=== PATIENT | female | born 1965 | race Caucasian/White ===

== ENCOUNTER → 2018-01-23 | Outpatient (CLI) | payer OTHER | END | disposition home or self-care (01) | LOC: TOM 07:13 | DX: R10.84 Generalized abdominal pain (principal); R63.8 Other symptoms and signs concerning food and fluid intake ==

== ENCOUNTER 2018-11-17 05:27 | Inpatient (IN) | payer OTHER ==
[~2018-11-17] VITALS: Ht 157.5 cm; Wt 65.3 kg
== END 2018-11-19 10:12 | disposition home or self-care (01) | DRG 661 ==
LOC: CIR.AMB 05:27 → O/R 09:00 → EDSTATUS 09:00 → O/R 11:53 → SURH 11:53
PROVIDERS: ADMIT Urology
PROC: 0TC38ZZ Extirpation of Matter from Right Kidney Pelvis, Via Natural or Artificial Opening Endoscopic (ICD-10-PCS; 2018-11-17)
PROC: 0T768DZ Dilation of Right Ureter with Intraluminal Device, Via Natural or Artificial Opening Endoscopic (ICD-10-PCS; principal; 2018-11-17 07:00)
DX: N20.0 Calculus of kidney (principal)

== ENCOUNTER 2019-02-11 14:33 | Outpatient (CLI) | payer OTHER | END 2019-02-11 17:00 | disposition home or self-care (01) | LOC: TOM 14:33 | DX: N20.0 Calculus of kidney (principal) ==

== ENCOUNTER 2019-02-25 09:51 | Outpatient (CLI) | payer OTHER | END 2019-02-25 09:56 | disposition home or self-care (01) | LOC: SONOGRAMA 09:51 → MAMO-SONO 10:15 | DX: N20.0 Calculus of kidney (principal) ==

== ENCOUNTER 2019-03-06 08:48 | Day surgery (SDC) | payer OTHER ==
[~2019-03-06 08:48] MED LIST: LIPITOR PO
== END 2019-03-06 14:25 | disposition home or self-care (01) ==
LOC: CIR.AMB 08:48
DX: N20.1 Calculus of ureter (principal)

== ENCOUNTER → 2019-05-23 | Outpatient (CLI) | payer OTHER | END | disposition home or self-care (01) | LOC: MAMO-SONO 08:45 → SONOGRAMA 08:57 | DX: N20.0 Calculus of kidney (principal) ==

== ENCOUNTER 2020-02-08 12:22 | Outpatient (CLI) | payer OTHER | END 2020-02-08 12:30 | disposition home or self-care (01) | LOC: LAB 12:22 | PROVIDERS: ATTEND Internal Medicine Cardiovascular Disease | DX: Z20.828 Contact with and (suspected) exposure to other viral communicable diseases (principal); R05 Cough; R10.84 Generalized abdominal pain; R50.9 Fever, unspecified; R00.2 Palpitations ==

== ENCOUNTER 2020-02-09 11:17 | Outpatient (CLI) | payer OTHER | END 2020-02-09 11:24 | disposition home or self-care (01) | LOC: LAB 11:17 | PROVIDERS: ATTEND Internal Medicine Cardiovascular Disease | DX: R05 Cough (principal); R50.9 Fever, unspecified; R10.84 Generalized abdominal pain; R00.2 Palpitations; Z20.828 Contact with and (suspected) exposure to other viral communicable diseases ==